=== PATIENT | male | born 1980 | race Caucasian/White ===

== ENCOUNTER 2017-12-04 15:50 | Emergency (ER) | payer SELFPAY ==
[~2017-12-04] VITALS: Ht 180.3 cm; Wt 77.1 kg
[2017-12-04] MEDS ORDERED: ALPR1TAB7 PO (15:58)
[2017-12-04] MEDS ORDERED: UNKNOWN ANTIBIOTIC (15:58)
[2017-12-04] MEDS ORDERED: UNKNOWN PAIN MED (15:58)
[2017-12-04] MEDS ORDERED: ALPR2TAB7 PO (15:59)
[2017-12-04] MEDS ORDERED: IV NORMAL SALINE 1000 ML BAG IV ONE (16:15)
[2017-12-04] MEDS ORDERED: PANTOPRAZOLE SODIUM 40 MG VIAL IV ONE (16:15)
[2017-12-04] MEDS ORDERED: MORPHINE SULFATE 2 MG/1 ML DISP.SYRIN IV ONE (16:15)
[2017-12-04] MEDS ORDERED: ONDANSETRON 4 MG/2 ML VIAL IV ONE (16:15)
[2017-12-04] MEDS ORDERED: ONDANSETRON 4 MG/2 ML VIAL ONE (16:16)
[2017-12-04] MEDS ORDERED: MORPHINE SULFATE 4 MG/1 ML DISP.SYRIN ONE (16:16)
[2017-12-04] MEDS ORDERED: PANTOPRAZOLE SODIUM 40 MG VIAL ONE (16:16)
[2017-12-04 16:20] LABS: BASOPHILS % (AUTO) 0.2 % (0.0-2.0); EOSINOPHILS # (AUTO) 0.2 K/uL (0.0-0.7); HEMATOCRIT 36.4 % (36.7-47.1); HEMOGLOBIN 11.9 g/dL (12.5-16.3); LYMPHOCYTES # (AUTO) 1.7 K/uL (20.0-40.0); LYMPHOCYTES % (AUTO) 24.8 % (20.5-51.5); MEAN CORPUSCULAR HEMOGLOBIN 27.8 uug (23.8-33.4); MEAN CORPUSCULAR HGB CONC 33 g/dL (32.5-36.3); MEAN CORPUSCULAR VOLUME 85.2 fL (73.0-96.2); MONOCYTES # (AUTO) 0.8 K/uL (2.0-10.0); MONOCYTES % (AUTO) 12.1 % (0.0-11.0); NEUTROPHILS # (AUTO) 4.1 K/uL (1.8-8.9); NEUTROPHILS % (AUTO) 59.9 % (38.5-71.5); PLATELET COUNT (AUTO) 300 K/uL (152-348); RED BLOOD CELL COUNT(AUTO) 4.28 MIL/uL (4.06-5.63); WHITE BLOOD COUNT (AUTO) 6.8 K/uL (3.6-10.2)
[2017-12-04 16:25] LABS: CARBON DIOXIDE 25 mmol/L (21-32); CHLORIDE 107 mmol/L (98-107); GLUCOSE 99 mg/dL (74-106); POTASSIUM 4.3 mmol/L (3.5-5.1); UREA NITROGEN, BLOOD 19 mg/dL (7-18)
[2017-12-04] MEDS ORDERED: diphenhydrAMINE 50 MG CAPSULE PO ONE (16:30)
--- NOTE | 2017-12-04 16:30 | NUR ---
pt requesting benadryl because pt says has had a sandwich that might have had onion in it. pt breathing normally, swallowing with out problem, ra 98%. pt refuses benadryl po and becomes agitated. md notified. md at bedside talking to pt.
[2017-12-04 16:31] LABS: ALANINE AMINOTRANSFERASE 25 U/L (16-63); ALKALINE PHOSPHATASE 66 U/L (50-136); ASPARTATE AMINOTRANSFERASE 17 U/L (15-37); BILIRUBIN,DIRECT < 0.1 mg/dL (0.0-0.2); BILIRUBIN,TOTAL 0.2 mg/dL (0.2-1.0); LIPASE 96 U/L (73-393); TOTAL PROTEIN, SERUM 7.2 g/dL (6.4-8.2)
--- NOTE | 2017-12-04 16:34 | NUR ---
pt threatened to leave the er if he does not get the banadryl and more morphine iv. er md at bed side having a discussion with the pt regarding pt care.
--- NOTE | 2017-12-04 16:35 | NUR ---
pt says does not want to stay for the ct and decides to leave the er. dorilock intact. pt walks in steady gait, no guarding of abdomin.
[2017-12-04] MEDS ORDERED: KETOROLAC TROMETHAMINE 30 MG INJ ONE (16:38)
[2017-12-04] MEDS ORDERED: diphenhydrAMINE 50 MG/1 ML VIAL ONE (16:38)
[2017-12-04] MEDS ORDERED: KETOROLAC TROMETHAMINE 30 MG INJ IVP ONE (16:45)
[2017-12-04] MEDS ORDERED: diphenhydrAMINE 50 MG/1 ML VIAL IM ONE (16:45)
== END 2017-12-04 16:35 | disposition left against medical advice (07) ==
LOC: ER 15:50
DX: R10.33 Periumbilical pain (principal); Z88.8 Allergy status to other drugs, medicaments and biological substances; Z91.018 Allergy to other foods; Z79.899 Other long term (current) drug therapy; Z53.29 Procedure and treatment not carried out because of patient's decision for other reasons
CPT/HCPCS: 36415; 83690; 85025; A4663; C9113; J1200; J1885; J2270; J2405; J7030